=== PATIENT | female | born 1955 | race Hispanic/Latino ===

== ENCOUNTER 2017-07-02 15:00 | Inpatient (IN) | payer BC ==
[~2017-07-02] VITALS: Ht 162.6 cm; Wt 124.2 kg
[~2017-07-02 15:00] MED LIST: INSU100I15 SQ; LOSA1TAB54 PO
[2017-07-02 16:00] VITALS: BP 153/75
[2017-07-02 16:03] LABS: EOSINOPHILS % (AUTO) 2.8 % (0.0-8.0); HEMATOCRIT 42.7 % (36-48); LYMPHOCYTES % (AUTO) 34.9 % (21.0-51.0); MEAN CORPUSCULAR HEMOGLOBIN 27.6 pg (27.0-33.0); MEAN CORPUSCULAR HGB CONC 32.7 g/dL (32.0-36.0); MEAN CORPUSCULAR VOLUME 84.3 fL (79-99); MONOCYTES % (AUTO) 6.4 % (3.0-13.0); NEUTROPHILS % (AUTO) 54.9 % (40.0-77.0); PLATELET COUNT (AUTO) 152 K/uL (130-400); RED BLOOD CELL COUNT(AUTO) 5.07 MIL/uL (4.00-5.50); RED CELL DISTRIBUTION WIDTH 16.5 % (11.0-15.5); WHITE BLOOD COUNT (AUTO) 8.2 K/uL (4.8-10.8)
[2017-07-02 16:04] LABS: APPEARANCE,URINE Clear (CLEAR); BILIRUBIN,URINE Negative (NEGATIVE); COLOR,URINE Yellow (YELLOW); GLUCOSE, URINE (UA) >=1000 mg/dL (NEGATIVE); KETONES,URINE Negative (NEGATIVE); LEUKOCYTE ESTERASE ,URINE Negative (NEGATIVE); NITRATE,URINE Negative (NEGATIVE); OCCULT BLOOD,URINE Negative (NEGATIVE); PROTEIN,URINE Negative (NEGATIVE); UROBILINOGEN,URINE 0.2 mg/dL (0.2-1.0)
[2017-07-02 16:10] LABS: POTASSIUM 4.5 mmol/L (3.5-5.1)
[2017-07-02 16:12] LABS: INR 1.13 (0.85-1.15); PARTIAL THROMBOPLASTIN TIME 27.6 SEC (26.3-35.5); PROTHROMBIN TIME 11.8 SEC (9.6-11.6)
[2017-07-02] MEDS ORDERED: CYAN250010 PO (16:40)
[2017-07-02] MEDS ORDERED: MELO-108 PO (16:40)
[2017-07-02] MEDS ORDERED: PREG100C PO (16:40)
[2017-07-02] MEDS ORDERED: [UNRECOGNIZED DRUG - OTHER] PO (16:40)
[2017-07-02] MEDS ORDERED: ASPI-555 PO (16:40)
[2017-07-02] MEDS ORDERED: GLUC-252 PO (16:40)
[2017-07-02] MEDS ORDERED: PENT400T12 PO (16:40)
[2017-07-02] MEDS ORDERED: ROSU10TA27 PO (16:40)
[2017-07-02] MEDS ORDERED: TRAZADONE PO (16:40)
[2017-07-02] MEDS ORDERED: HAIR SKIN NAIL PO (16:40)
[2017-07-02] MEDS ORDERED: VITA400C19 PO (16:40)
[2017-07-02] MEDS ORDERED: CINN500C PO (16:40)
[2017-07-02] MEDS ORDERED: [UNRECOGNIZED DRUG - OTHER] PO (16:40)
[2017-07-02] MEDS ORDERED: DAPA5TAB PO (16:40)
[2017-07-02] MEDS ORDERED: CALC0.253 PO (16:40)
[2017-07-02] MEDS ORDERED: ROPI0.255 PO (16:41)
[2017-07-02] MEDS ORDERED: GABA-529 PO (16:41)
[2017-07-02 16:47] LABS: BACTERIA,URINE Rare /HPF (None Seen); RBC,URINE None Seen /HPF (0-1)
[2017-07-05] VITALS (22 sets, daily range): BP systolic 122–190; BP diastolic 67–104
[2017-07-05] MEDS ORDERED: SODIUM CHLORIDE 0.9% 1000ML 1,000 ML IV ONE (07:20)
[2017-07-05] MEDS ORDERED: BUPIVACAINE/EPI/PF 0.25% 30ML VIAL IJ ONE (07:25)
[2017-07-05] MEDS ORDERED: CEFAZOLIN SODIUM 1 GM VIAL ONE (07:25)
[2017-07-05] MEDS ORDERED: TRANEXAMIC ACID 1000MG/10ML IV ONE (07:26)
[2017-07-05] MEDS: CEFAZOLIN SODIUM 1 GM VIAL ONE ×2 (07:34→08:35)
[2017-07-05] MEDS ORDERED: CHOL100018 PO (07:45)
[2017-07-05] MEDS ORDERED: INSU3INS9 SQ (07:45)
[2017-07-05] MEDS ORDERED: CEFAZOLIN 3GM /D5W 100ML 100 ML IV ONE (08:00)
[2017-07-05] MEDS ORDERED: GLYCOPYRROLATE 0.2 MG/ML 5 ML VIAL ONE (08:34)
[2017-07-05] MEDS ORDERED: LIDOCAINE PF 2% 5ML ABBOJECT ONE (08:34)
[2017-07-05] MEDS ORDERED: DEXAMETHASONE SOD PHOSPHATE 10MG/ML 1ML VIAL ONE ×2 (08:34→10:21)
[2017-07-05] MEDS ORDERED: ONDANSETRON HCL 4 MG/2 ML VIAL ONE ×2 (08:34→10:21)
[2017-07-05] MEDS ORDERED: PROPOFOL 10 MG/ML 20ML VIAL IV ONE (08:35)
[2017-07-05] MEDS ORDERED: MIDAZOLAM HCL 1 MG/ML 2ML VIAL ONE (08:35)
[2017-07-05] MEDS ORDERED: FENTANYL CITRATE PF 50 MCG/1 ML 2ML VIAL ONE ×3 (08:41→09:51)
[2017-07-05] MEDS ORDERED: METOCLOPRAMIDE 10 MG/2 ML VIAL ONE (10:21)
[2017-07-05] MEDS ORDERED: LIDOCAINE HCL 4% LTA SOL 4 ML VIAL ONE (10:21)
[2017-07-05] MEDS ORDERED: ROCURONIUM BROMIDE 10MG/1ML 5ML VL ONE (10:22)
[2017-07-05] MEDS ORDERED: SUCCINYLCHOLINE CHLORIDE 20 MG/ML 10 ML VIAL ONE (10:22)
[2017-07-05] MEDS: SODIUM CHLORIDE 0.9% 1000ML 1,000 ML IV SCH ×2 (10:31→22:17)
[2017-07-05] MEDS ORDERED: EPHEDRINE SULFATE 50 MG/ML AMPULE ONE (10:44)
[2017-07-05] MEDS: ACETAMINOPHEN EXTRA STRENGTH 500 MG TABLET PO SCH ×2 (10:45→22:13)
[2017-07-05] MEDS ORDERED: POTASSIUM CHLORIDE 10% ELIXIR 20 MEQ/15 ML UDCUP PO PRN (10:45)
[2017-07-05] MEDS ORDERED: POTASSIUM CHLORIDE 20MEQ/100ML 100 ML IV PRN (10:45)
[2017-07-05] MEDS ORDERED: ONDANSETRON HCL 4 MG/2 ML VIAL IVP PRN (10:45)
[2017-07-05] MEDS ORDERED: CALCIUM CARBONATE 500 MG TABLET PO PRN (10:45)
[2017-07-05] MEDS ORDERED: TRAMADOL HCL 50 MG TABLET PO PRN (10:45)
[2017-07-05] MEDS ORDERED: FERROUS FUMARATE 324 MG TABLET PO PRN (10:45)
[2017-07-05] MEDS ORDERED: DiphenhydrAMINE HCL 50 MG/ML VIAL IVP PRN (10:45)
[2017-07-05] MEDS ORDERED: KETOROLAC TROMETHAMINE 15MG/ML IV PRN (10:45)
[2017-07-05] MEDS ORDERED: LIDOCAINE HCL-MPF 1% 2ML VIAL IVP PRN (10:45)
[2017-07-05] MEDS ORDERED: POTASSIUM CHLORIDE 20 MEQ ERTAB PO PRN (10:45)
[2017-07-05] MEDS ORDERED: MEPERIDINE-PF 25 MG/ML SYG ONE ×2 (11:18→11:30)
[2017-07-05] MEDS: INSULIN HUMULIN R 100 UNIT/ML 3ML SQ SCH ×3 (11:30→21:10)
[2017-07-05] MEDS: OXYCODONE HCL 5 MG TAB PO PRN ×2 (13:13→17:10)
[2017-07-05] MEDS: CEFAZOLIN 3GM /D5W 100ML 100 ML IV SCH (16:30)
[2017-07-05] MEDS: INSULIN LISPRO 100 UNIT/ML 3ML SQ SCH (17:02)
[2017-07-05] MEDS: INSULIN DEGLUDEC SQ SCH (21:00)
[2017-07-05] MEDS: LIRAGLUTIDE SQ SCH (21:00)
[2017-07-05] MEDS: GABAPENTIN 100 MG CAPSULE PO SCH (21:02)
[2017-07-05] MEDS: ATORVASTATIN CALCIUM 20 MG TABLET PO SCH (21:02)
[2017-07-05] MEDS: FAMOTIDINE 20MG TAB 20 MG TAB PO SCH (21:02)
[2017-07-05] MEDS: CELECOXIB 200 MG CAP PO SCH (21:02)
[2017-07-05] MEDS: ROPINIROLE HCL 1 MG TABLET PO SCH (21:02)
[2017-07-05] MEDS: PREGABALIN 100 MG CAPSULE PO SCH (21:02)
[2017-07-05] MEDS: ASPIRIN 325 MG TABLET PO SCH (21:03)
[2017-07-05] MEDS: TRAZODONE HCL 50 MG TAB PO SCH (21:03)
[2017-07-05] MEDS ORDERED: ONDANSETRON HCL MDV 20ML 2 MG/ML VIAL IVP PRN (21:28)
[2017-07-05] MEDS: PENTOXIFYLLINE 400 MG TABLET.SA PO SCH (22:12)
[2017-07-06] VITALS: BP 131/68
[2017-07-06] MEDS: OXYCODONE HCL 5 MG TAB PO PRN ×4 (00:27→16:37)
[2017-07-06] MEDS: CEFAZOLIN 3GM /D5W 100ML 100 ML IV SCH (00:28)
[2017-07-06 03:46] VITALS: BP 113/62
[2017-07-06 06:08] LABS: HEMATOCRIT 38.5 % (36-48); MEAN CORPUSCULAR HEMOGLOBIN 28.2 pg (27.0-33.0); MEAN CORPUSCULAR HGB CONC 33.6 g/dL (32.0-36.0); MEAN CORPUSCULAR VOLUME 83.9 fL (79-99); PLATELET COUNT (AUTO) 157 K/uL (130-400); RED BLOOD CELL COUNT(AUTO) 4.59 MIL/uL (4.00-5.50); RED CELL DISTRIBUTION WIDTH 17.2 % (11.0-15.5); WHITE BLOOD COUNT (AUTO) 12.5 K/uL (4.8-10.8)
[2017-07-06 06:11] LABS: CREATININE 0.8 mg/dL (0.5-1.5); POTASSIUM 3.7 mmol/L (3.5-5.1)
[2017-07-06] MEDS: ACETAMINOPHEN EXTRA STRENGTH 500 MG TABLET PO SCH ×3 (06:20→22:39)
[2017-07-06] MEDS: INSULIN HUMULIN R 100 UNIT/ML 3ML SQ SCH ×4 (06:24→22:44)
[2017-07-06] MEDS: SODIUM CHLORIDE 0.9% 1000ML 1,000 ML IV SCH (06:31)
[2017-07-06 07:55] VITALS: BP 120/59
[2017-07-06] MEDS: INSULIN LISPRO 100 UNIT/ML 3ML SQ SCH ×2 (08:44→16:35)
[2017-07-06] MEDS: PREGABALIN 100 MG CAPSULE PO SCH ×2 (09:00→22:37)
[2017-07-06] MEDS: FAMOTIDINE 20MG TAB 20 MG TAB PO SCH ×2 (09:00→22:37)
[2017-07-06] MEDS: POLYETHYLENE GLYCOL 3350 17 GM POWD.PACK PO SCH (09:00)
[2017-07-06] MEDS: DAPAGLIFLOZIN PROPANEDIOL 5 MG PO SCH (09:00)
[2017-07-06] MEDS: LOSARTAN/HYDROCHLOROTHIAZIDE 50-12.5MG TABLET PO SCH (09:00)
[2017-07-06] MEDS: CELECOXIB 200 MG CAP PO SCH ×2 (09:00→22:37)
[2017-07-06] MEDS: ASPIRIN 325 MG TABLET PO SCH ×2 (09:00→22:36)
[2017-07-06] MEDS: PENTOXIFYLLINE 400 MG TABLET.SA PO SCH ×2 (09:02→22:37)
[2017-07-06] MEDS: CYANOCOBALAMIN (VITAMIN B-12) 1,000 MCG TABLET PO SCH (09:02)
[2017-07-06 11:38] VITALS: BP 122/74
[2017-07-06 16:27] VITALS: BP 153/70
[2017-07-06 20:00] VITALS: BP 142/67
[2017-07-06] MEDS: LIRAGLUTIDE SQ SCH (21:00)
[2017-07-06] MEDS: INSULIN DEGLUDEC SQ SCH (21:00)
[2017-07-06] MEDS: TRAZODONE HCL 50 MG TAB PO SCH (22:36)
[2017-07-06] MEDS: ROPINIROLE HCL 1 MG TABLET PO SCH (22:36)
[2017-07-06] MEDS: GABAPENTIN 100 MG CAPSULE PO SCH (22:36)
[2017-07-06] MEDS: ATORVASTATIN CALCIUM 20 MG TABLET PO SCH (22:37)
[2017-07-07] VITALS (7 sets, daily range): BP systolic 131–170; BP diastolic 68–82
[2017-07-07] MEDS: INSULIN HUMULIN R 100 UNIT/ML 3ML SQ SCH ×4 (06:55→21:14)
[2017-07-07] MEDS: ACETAMINOPHEN EXTRA STRENGTH 500 MG TABLET PO SCH ×3 (06:59→21:08)
[2017-07-07] MEDS: OXYCODONE HCL 5 MG TAB PO PRN (07:03)
[2017-07-07] MEDS: INSULIN LISPRO 100 UNIT/ML 3ML SQ SCH ×2 (08:00→17:04)
[2017-07-07] MEDS: CYANOCOBALAMIN (VITAMIN B-12) 1,000 MCG TABLET PO SCH (08:36)
[2017-07-07] MEDS: ASPIRIN 325 MG TABLET PO SCH ×2 (08:36→21:09)
[2017-07-07] MEDS: FAMOTIDINE 20MG TAB 20 MG TAB PO SCH ×2 (08:36→21:08)
[2017-07-07] MEDS: PENTOXIFYLLINE 400 MG TABLET.SA PO SCH ×2 (08:36→21:08)
[2017-07-07] MEDS: LOSARTAN/HYDROCHLOROTHIAZIDE 50-12.5MG TABLET PO SCH (08:36)
[2017-07-07] MEDS: POLYETHYLENE GLYCOL 3350 17 GM POWD.PACK PO SCH (08:37)
[2017-07-07] MEDS: CELECOXIB 200 MG CAP PO SCH ×2 (08:37→21:09)
[2017-07-07] MEDS: PREGABALIN 100 MG CAPSULE PO SCH ×2 (08:37→21:09)
[2017-07-07] MEDS: DAPAGLIFLOZIN PROPANEDIOL 5 MG PO SCH (08:38)
[2017-07-07] MEDS: LIRAGLUTIDE SQ SCH (21:00)
[2017-07-07] MEDS: INSULIN DEGLUDEC SQ SCH (21:00)
[2017-07-07] MEDS: ROPINIROLE HCL 1 MG TABLET PO SCH (21:08)
[2017-07-07] MEDS: GABAPENTIN 100 MG CAPSULE PO SCH (21:09)
[2017-07-07] MEDS: ATORVASTATIN CALCIUM 20 MG TABLET PO SCH (21:09)
[2017-07-07] MEDS: TRAZODONE HCL 50 MG TAB PO SCH (21:09)
[2017-07-08] MEDS: ACETAMINOPHEN EXTRA STRENGTH 500 MG TABLET PO SCH ×3 (04:33→22:29)
[2017-07-08 04:56] VITALS: BP 125/86
[2017-07-08] MEDS: INSULIN HUMULIN R 100 UNIT/ML 3ML SQ SCH ×4 (05:57→20:45)
[2017-07-08 08:25] VITALS: BP 122/74
[2017-07-08] MEDS: FAMOTIDINE 20MG TAB 20 MG TAB PO SCH ×2 (08:43→20:37)
[2017-07-08] MEDS: CYANOCOBALAMIN (VITAMIN B-12) 1,000 MCG TABLET PO SCH (08:43)
[2017-07-08] MEDS: CELECOXIB 200 MG CAP PO SCH ×2 (08:43→20:36)
[2017-07-08] MEDS: PREGABALIN 100 MG CAPSULE PO SCH ×2 (08:43→20:36)
[2017-07-08] MEDS: ASPIRIN 325 MG TABLET PO SCH ×2 (08:43→20:37)
[2017-07-08] MEDS: PENTOXIFYLLINE 400 MG TABLET.SA PO SCH ×2 (08:43→20:37)
[2017-07-08] MEDS: POLYETHYLENE GLYCOL 3350 17 GM POWD.PACK PO SCH (08:43)
[2017-07-08] MEDS: LOSARTAN/HYDROCHLOROTHIAZIDE 50-12.5MG TABLET PO SCH (08:44)
[2017-07-08] MEDS: OXYCODONE HCL 5 MG TAB PO PRN ×2 (08:46→20:39)
[2017-07-08] MEDS: DAPAGLIFLOZIN PROPANEDIOL 5 MG PO SCH (09:00)
[2017-07-08] MEDS: INSULIN LISPRO 100 UNIT/ML 3ML SQ SCH ×2 (09:17→16:02)
[2017-07-08] MEDS ORDERED: BISACODYL 10 MG SUPP.RECT RC PRN (10:45)
[2017-07-08 11:39] VITALS: BP 149/72
[2017-07-08 16:16] VITALS: BP 137/71
[2017-07-08 19:00] VITALS: BP 134/66
[2017-07-08] MEDS: ROPINIROLE HCL 1 MG TABLET PO SCH (20:36)
[2017-07-08] MEDS: ATORVASTATIN CALCIUM 20 MG TABLET PO SCH (20:36)
[2017-07-08] MEDS: TRAZODONE HCL 50 MG TAB PO SCH (20:37)
[2017-07-08] MEDS: INSULIN DEGLUDEC SQ SCH (20:37)
[2017-07-08] MEDS: LIRAGLUTIDE SQ SCH (20:37)
[2017-07-08] MEDS: GABAPENTIN 100 MG CAPSULE PO SCH (20:37)
[2017-07-08 23:03] VITALS: BP 147/69
[2017-07-09 03:10] VITALS: BP 151/72
[2017-07-09] MEDS: ACETAMINOPHEN EXTRA STRENGTH 500 MG TABLET PO SCH ×2 (05:25→14:37)
[2017-07-09] MEDS: INSULIN HUMULIN R 100 UNIT/ML 3ML SQ SCH ×3 (06:15→16:38)
[2017-07-09 07:51] VITALS: BP 104/74
[2017-07-09] MEDS: INSULIN LISPRO 100 UNIT/ML 3ML SQ SCH ×2 (08:16→16:38)
[2017-07-09] MEDS: OXYCODONE HCL 5 MG TAB PO PRN ×2 (08:30→13:56)
[2017-07-09] MEDS: PREGABALIN 100 MG CAPSULE PO SCH (08:31)
[2017-07-09] MEDS: CELECOXIB 200 MG CAP PO SCH (08:31)
[2017-07-09] MEDS: CYANOCOBALAMIN (VITAMIN B-12) 1,000 MCG TABLET PO SCH (08:31)
[2017-07-09] MEDS: ASPIRIN 325 MG TABLET PO SCH (08:31)
[2017-07-09] MEDS: FAMOTIDINE 20MG TAB 20 MG TAB PO SCH (08:31)
[2017-07-09] MEDS: PENTOXIFYLLINE 400 MG TABLET.SA PO SCH (08:31)
[2017-07-09] MEDS: LOSARTAN/HYDROCHLOROTHIAZIDE 50-12.5MG TABLET PO SCH (08:31)
[2017-07-09] MEDS: POLYETHYLENE GLYCOL 3350 17 GM POWD.PACK PO SCH (08:31)
[2017-07-09] MEDS: DAPAGLIFLOZIN PROPANEDIOL 5 MG PO SCH (09:00)
[2017-07-09 11:06] VITALS: BP 132/68
[2017-07-09 16:22] VITALS: BP 140/70
[2017-07-09] MEDS ORDERED: HYDR-309 PO (16:39)
[2017-07-09] MEDS ORDERED: ASPI-1012 PO (16:39)
== END 2017-07-09 21:05 | DRG 470 ==
LOC: EDSTATUS 15:00 → DAHIP 07-05 06:08 → 4AH 07-05 12:18
PROVIDERS: ADMIT Orthopaedic Surgery; ATTEND Orthopaedic Surgery
PROC: 0SRC0J9 Replacement of Right Knee Joint with Synthetic Substitute, Cemented, Open Approach (ICD-10-PCS; principal; 2017-07-05 08:32)
DX: M17.11 Unilateral primary osteoarthritis, right knee (principal); E11.9 Type 2 diabetes mellitus without complications; I10 Essential (primary) hypertension; E78.5 Hyperlipidemia, unspecified; Z96.652 Presence of left artificial knee joint
CPT/HCPCS: 36415; 80048; 81001; 82948; 85025; 85027; 85610; 85730; 88305; 88311; A4218; J0330; J0690; J1100; J1815; J2001; J2175; J2250; J2405; J2704; J2765; J3010; J3490; J7030

== ENCOUNTER 2018-06-13 07:25 | Day surgery (SDC) | payer BC ==
[2018-05-30 13:04] LABS: BASOPHILS % (AUTO) 0.6 % (0.0-5.0); HEMATOCRIT 47.9 % (36-48); LYMPHOCYTES % (AUTO) 37.6 % (21.0-51.0); MEAN CORPUSCULAR HEMOGLOBIN 27.7 pg (27.0-33.0); MONOCYTES % (AUTO) 7.5 % (3.0-13.0); NEUTROPHILS % (AUTO) 51.3 % (40.0-77.0); NUCLEATED RED BLOOD CELLS 0.1 % (0.0-0.19); PLATELET COUNT (AUTO) 161 K/uL (130-400); RED CELL DISTRIBUTION WIDTH 15.1 % (11.0-15.5); WHITE BLOOD COUNT (AUTO) 7.2 K/uL (4.8-10.8)
[2018-05-30 13:14] LABS: INR 1.16 (0.85-1.15); PROTHROMBIN TIME 12.1 SEC (9.6-11.6)
[2018-05-30 13:17] LABS: CREATININE 0.9 mg/dL (0.5-1.5); POTASSIUM 4.4 mmol/L (3.5-5.1)
[2018-06-06 08:53] VITALS: BP 116/89
[2018-06-13] VITALS (15 sets, daily range): BP systolic 131–158; BP diastolic 67–86
[~2018-06-13] VITALS: Ht 162.6 cm; Wt 115.7 kg
[~2018-06-13 07:25] MED LIST changes: +ASPI-555 PO; +B12 PO; +CEFAZOLIN SODIUM 1 GM VIAL IVP SCH; +CHOL100018 PO; +DAPA5TAB PO; +INSU3INS9 SQ; -LOSA1TAB54 PO; +MELO-108 PO; +METF-446 PO; +MULT-1247 PO; +NAPR-1023 PO; +PENT400T12 PO; +PREG100C PO; +ROPI0.257 PO; +ROSU10TA27 PO; +TRAZADONE PO; +VITA400C19 PO; +turmeric PEG
[2018-06-13] MEDS ORDERED: SODIUM CHLORIDE 0.9% 1000ML 1,000 ML IV ONE (08:41)
[2018-06-13] MEDS: CEFAZOLIN SODIUM 1 GM VIAL ONE ×2 (09:03→10:00)
[2018-06-13] MEDS ORDERED: BUPIVACAINE/PF 0.5% 30ML VIAL ONE (09:26)
[2018-06-13] MEDS ORDERED: MIDAZOLAM HCL 1 MG/ML 2ML VIAL ONE (09:51)
[2018-06-13] MEDS ORDERED: LIDOCAINE PF 2% 5ML ABBOJECT ONE (09:54)
[2018-06-13] MEDS ORDERED: PROPOFOL 10 MG/ML 20ML VIAL IV ONE (09:55)
[2018-06-13] MEDS ORDERED: ROCURONIUM 10MG/1ML SYR 10 MG/ML ML ONE (09:55)
[2018-06-13] MEDS ORDERED: FENTANYL CITRATE PF 50 MCG/1 ML 2ML VIAL ONE ×2 (10:11→10:16)
[2018-06-13] MEDS ORDERED: NEOSTIGMINE 5MG/5ML SYR IV ONE (10:56)
[2018-06-13] MEDS ORDERED: GLYCOPYRROLATE 1 MG/5 ML SYRINGE ONE (10:56)
== END 2018-06-13 13:35 | disposition home or self-care (01) ==
LOC: DAH 07:25
PROVIDERS: ATTEND Surgery
DX: K42.9 Umbilical hernia without obstruction or gangrene (principal); Z79.899 Other long term (current) drug therapy; Z79.82 Long term (current) use of aspirin; Z79.84 Long term (current) use of oral hypoglycemic drugs; Z98.890 Other specified postprocedural states; E11.9 Type 2 diabetes mellitus without complications; I10 Essential (primary) hypertension; Z82.49 Family history of ischemic heart disease and other diseases of the circulatory system; Z80.9 Family history of malignant neoplasm, unspecified; Z80.1 Family history of malignant neoplasm of trachea, bronchus and lung; Z68.41 Body mass index [BMI] 40.0-44.9, adult
CPT/HCPCS: 36415; 49585; 80048; 82948 ×2; 85025; 85610; 88302; A4218; A4452; A4649; A4930; C1781; J0690; J2001; J2250; J2704; J2710; J3010 ×2; J3490 ×2; J7030; J7120

== ENCOUNTER → 2018-09-20 | Outpatient (CLI) | payer BC ==
[~2018-09-20] MED LIST changes: -CEFAZOLIN SODIUM 1 GM VIAL IVP SCH; -PENT400T12 PO; +PENT400T72 PO; -ROSU10TA27 PO; +ROSU10TA28 PO
== END | disposition home or self-care (01) ==
LOC: SLP 20:35
PROVIDERS: ATTEND Internal Medicine
DX: G47.33 Obstructive sleep apnea (adult) (pediatric) (principal); I10 Essential (primary) hypertension; E11.9 Type 2 diabetes mellitus without complications
CPT/HCPCS: 95810

== ENCOUNTER → 2018-09-28 | Outpatient (CLI) | payer BC | END | disposition home or self-care (01) | LOC: SLP 20:42 | PROVIDERS: ATTEND Internal Medicine | DX: G47.33 Obstructive sleep apnea (adult) (pediatric) (principal); I10 Essential (primary) hypertension; E11.9 Type 2 diabetes mellitus without complications | CPT/HCPCS: 95811 ==